=== PATIENT | female | born 1975 | race Caucasian/White ===

== ENCOUNTER 2023-09-09 19:52 | Outpatient (REF) | payer OTHER, SELFPAY ==
[2023-09-13 19:07] LABS: Age Gdln ACOG Testing Note (.); HPV Aptima Negative (Negative); IGP, Aptima HPV, rfx 16/18,45 Note (.)
== END 2023-09-09 19:53 | disposition home or self-care (01) ==
LOC: LAB 19:52
PROVIDERS: Visit Provider Obstetrics & Gynecology
DX: Z12.4 Encounter for screening for malignant neoplasm of cervix (principal)
CPT/HCPCS: 87624; G0145

== ENCOUNTER 2024-09-15 19:11 | Outpatient (REF) | payer OTHER, SELFPAY ==
--- OUTSIDE RECORDS SUMMARY | 2024-09-15 19:15 | XMS_ITS | CCD ---
Author Organization [facility] Care Team Providers Care Firm Administrator Name Role Phone KRYSTINA CRABTREE Admitting Unavailable BRO, KRYSTINA Attending Unavailable REQUEST, NONE LISTED Primary Care Unavaila ble BRO, KRYSTINA Consulting Unavailable HUMERA, WENDI Admitting Unavailable HUMERA, WENDI Attending Unavailable REQUEST, NONE LISTED Primary Care Unavaila nirav PETTY, DR QUIQUE Armendariz Consulting Unavailable HUMERA, WENDI Consulting Unavailable HUMERA, WENDI Admitting Unavailable HUMERA, WENDI Attending Unavailable REQUEST, NONE LISTED Primary Care Unavaila nirav GRUBBS, WENDI Consulting Unavailable BRO, KRYSTINA Admitting Unavailable BRO, KRYSTINA Attending Unavailable REQUEST, NONE LISTED Primary Care Unavaila ble BRO, KRYSTINA Consulting Unavailable RICKY BAH Attending Unavailable DO Adrien Granados Primary Care Provider [phone] Ricky Bah Attending Provider [phone] RICKY BAH Attending Unavailable RICKY BAH Attending Unavailable DO Adrien Granados Primary Care Provider [phone] LyDO Sarah Attending Provider [phone] DO Ricky Bah Referring Provider [phone] Sarah García Attending Unavailable Ricky Bah Referring Unavailable Adrien Granados Primary Care Unavailable Sarah García Admitting Unavailable Ricky Bah Admitting Unavailable Ricky Bah Attending Unavailable Adrien Granados Primary Care Unavailable Medications Current Medications Medication Drug Class(es) Dates Sig (Normalized) Sig (Original) 168 hr estradiol 0.76858 mg/hr transdermal system (1 source) Estrogen Start: 06-25-2024 apply 1 dose topically every week Estradiol Active 1 PATCH TOPICAL every week June 25, 2024 12:00am Thyroid (Pork) (Wise Thyroid) 60 mg tablet (1 source) Start: 06-25-2024 take 1 tablet by mouth once daily Thyroid (Pork) (Wise Thyroid) 60 mg tablet Active 60 MG PO Daily June 25, 2024 12:00am Problems Active Problems Problem Classification Problem Date Documented Da te Episodic/Chronic Other screening for suspected conditions (not mental disorders or infectious disease) (9 sources) Encounter for screening for malignant neoplasm of cervix; Translations: [Encounter for screening mammogram for malignant neoplasm of breast] Onset: 2021 Episodic Unclassified (2 sources) CONTACT W/AND (SUSP) EXPOS COVID-19; Translations: [CONTACT W/AND (SUSP) EXPOS COVID-19] Onset: 02-11-2022 Unclassified (1 source) Encounter for screening mammogram for malignant neoplasm of breast; Translations: [Encounter for screening mammogram for malignant neoplasm of breast] Onset: 10-10-2023 Viral infection (1 source) COVID-19; Translations: [COVID-19] Onset: 02-11-2022 Past or Other Problems Problem Classification Problem Date Documented Da te Episodic/Chronic Residual codes; unclassified (1 source) Family history of malignant neoplasm of breast; Translations: [FAMILY HX MALIG NEOPLASM OF BREAST] Onset: 09-06-2021 Episodic Residual codes; unclassified (1 source) Family history of malignant neoplasm of other organs or systems; Translations: [FAM HX MALIG NEOPLASM OTH ORGN/SYS] Onset: 09-06-2021 Episodic Unclassified (1 source) CONTACT W/AND (SUSP) EXPOS COVID-19; Translations: [CONTACT W/AND (SUSP) EXPOS COVID-19] Onset: 02-08-2022 Results Test Name Value Interpretation Reference Range Facility MM screening mammo BI w/CADo n 10-10-2023 MM screening mammo BI w/CAD [facility] [place] [address] Mammography Report Signed Patient: Aura Tirado MR#: [id number] : 1975 Acct:[id number] Age/Sex: 48 / F ADM Date: 10/10/23 Loc: OR Room: Type: [facility] Attending Dr: Ricky Bah Copies to: DO Ricky Velasco DO Ordering Provider: Ricky Bah DO Date of Service: 10/10/23 MM/MM screening mammo BI w/CAD: SCREENING CLINICAL DATA: Screening for malignancy. BILATERAL SCREENING MAMMOGRAMS - FULL FIELD DIGITAL WITH TOMOSYNTHESIS AND CAD Routine and tomosynthesis craniocaudal and mediolateral oblique views of both breasts were obtained using low-dose digital technique. Comparison is made to prior studies from August 20, 2019 through 2021. This examination was reviewed with the aid of CAD. There are scattered fibroglandular densities. There is similar nodularity. There are no developing masses, typically malignant calcifications or architectural distortion. There has been no significant interval change. MM/MM screening mammo BI w/CAD IMPRESSION: NO MAMMOGRAPHIC EVIDENCE OF MALIGNANCY. ROUTINE FOLLOW-UP IS RECOMMENDED IN ONE YEAR. RESULT CODE: 2 Benign Findings(s) DENSITY CODE: 2 (approximately 25-50% glandular) FOLLOW UP: 1YR The false-negative rate of mammography is approximately 10-percent. Management of a palpable abnormality must be based on clinical grounds. Patient was entered into a reminder system with a target due date for the next mammogram. Impression dictated by: Margot Cruz M.D.10/10/2023 3:03 PM Dictation Location: [facility] Transcribed By: [facility] 10/10/23 1503 Dictated By: Margot Cruz MD 10/10/23 1432 Signed By: 10/10/23 1503 Normal [facility] ASYMPTOMATIC COVID-19 ANTIGE Non 02-08-2022 EUA Statement SEE BELOW Normal [facility] Comment on above: Result Comment: This test has not been FDA cleared or approved, but has been authorized by the FDA under an Emergency Use Authorization (EUA) for use by authorized laboratories certified under CLIA that meet the requirements to perform moderate or high complexity testing. This test has been authorized only for the detection of proteins from SARS-CoV-2, not for any other viruses or pathogens. The emergency use of this test is authorized for the duration of the declaration that circumstances exist justifying the authorization of emergency use of in vitro diagnostic tests for detection and/or diagnosis of Covid-19 under section 564(b)(1) of the Act, 21 U.S.C. 360bbb-3(b)(1), unless the declaration is terminated or authorization is revoked sooner. Performed By: #### C VDAGA #### Laboratory [address] [place] [address] Dr. aKte Storm SARS-CoV-2 (COVID-19) RNA PATRICIA+probe Ql (Unsp spec) Positive Critically abnormal NEGATIVE The Comment on above: Result Comment: SARS -CoV-2 antigen present; does not rule out coinfection with other pathogens. Performed By: #### C VDAGA #### Laboratory [address] [place] [address] Dr. Kate Storm Covid-19 PCR ([facility])on SARS-CoV-2 (COVID-19) RNA PATRICIA+probe Ql (Unsp spec) Detected Critically abnormal NOT DETECTED The Comment on above: Result Comment: This test is not yet approved or cleared by the [place] FDA. When there are no FDA-approved or cleared tests available, and other criteria are met, FDA can make tests available under an emergency access mechanism called an Emergency Use Authorization (EUA). The EUA for this test is supported by the Litigation Partner of Health and Human Service's declaration that circumstances exist to justify the emergency use of in vitro diagnostics for the detection and/or diagnosis of the virus that causes COVID-19. This EUA will remain in effect for the duration of the COVID-19 declaration justifying emergency of IVDs, unless it is terminated or revoked by the FDA (after which the test may no longer be used). Performed By: #### C VDTBH #### Laboratory [address] [place] [address] Dr. Kate Storm Pap IG, rfx Aptima HPV, rfx 16/18,45on 09-26-2021 . . Normal The Comment on above: Result Comment: Perf ormed at: WB Performed By: #### P APHR2A #### Laboratory [address] [place] [address] Dr. Kate Storm DIAGNOSIS: Comment Normal [facility] Comment on above: Result Comment: NEGA TIVE FOR INTRAEPITHELIAL LESION OR MALIGNANCY. Performed at: [facility] Performed By: #### P APHR2A #### Laboratory [address] [place] [address] Dr. Kate Storm HPV Aptima Negative Normal Negative [facility] Comment on above: Result Comment: This nucleic acid amplification test detects fourteen high-risk HPV types (16,18,31,33,35,39,45,51,52,56,58,59,66,68) without differentiation. Performed at: =G Performed By: #### P APHR2A #### Laboratory [address] [place] [address] Dr. Kate Storm Methodology: Comment Normal [facility] Comment on above: Result Comment: This liquid based ThinPrep(R) pap test was screened with the use of an image guided system. Performed at: WB Performed By: #### P APHR2A #### Laboratory [address] [place] [address] Dr. Kate Storm Note: Comment Normal [facility] Comment on above: Result Comment: The Pap smear is a screening test designed to aid in the detection of premalignant and malignant conditions of the uterine cervix. It is not a diagnostic procedure and should not be used as the sole means of detecting cervical cancer. Both false-positive and false-negative reports do occur. . Performed at: WB Performed By: #### P APHR2A #### Laboratory [address] [place] [address] Dr. Kate Storm Performed by: Comment Normal [facility] Comment on above: Result Comment: Laury Barrios Mold Machine Operator (ASCP) Performed at: WB Performed By: #### P APHR2A #### Laboratory [address] [place] [address] Dr. Kate tSorm Specimen adequacy: Comment Normal [facility] Comment on above: Result Comment: Sati sfactory for evaluation. Performed at: WB Performed By: #### P APHR2A #### Laboratory [address] [place] [address] Dr. Kate Storm MG MAMM SCREEN 3D DIMPLE CADon 2021 MG MAMM SCREEN 3D DIMPLE CAD Patient: AURA TIRADOErica Exam Date: 2021 : 1975 Gender:F Ordering : DR. WENDI GRUBBS . Admission #: [id number] Family : Order #: [id number] CLICK HERE TO VIEW EXAM RADIOLOGY REPORT PROCEDURE: MAMMOGRAM SCREENING 3D BILATERAL CAD COMPARISON: MG MAMM RT DIAG FU, 09/01/2020. MG MAMM SCREEN DIMPLE W CAD, 08/25/2020. INDICATIONS: Screening mammography Calculator Name NCI Breast Cancer Risk Assessment Tool 5 Year Breast Cancer Risk 0.80% Lifetime Breast Cancer Risk 8.40% Personal Breast Cancer No Personal Ovarian Cancer No Treatments None Family Cancers Grandmother-paternal with breast cancer at age 52; Father with prostate cancer at age 68. LOCATION: The BREAST COMPOSITION: Extremely dense, which lowers the sensitivity of mammography. FINDINGS: DIAGNOSTIC CATEGORY 2--BENIGN FINDING: RIGHT BREAST: No significant suspicious finding. Stable, chronic asymmetry within the lower-inner quadrant. Stable appearance of multiple small axillary lymph nodes. No significant change has occurred. LEFT BREAST: No significant suspicious finding. Stable appearance of multiple small axillary lymph nodes. No significant change has occurred. RECOMMENDATIONS: ROUTINE MAMMOGRAM AND CLINICAL EVALUATION IN 12 MONTHS. PLEASE NOTE: A NORMAL MAMMOGRAM DOES NOT EXCLUDE THE POSSIBILITY OF BREAST CANCER. A CLINICALLY SUSPICIOUS PALPABLE LUMP SHOULD BE BIOPSIED. Dictated by: Quique Petty M.D. on 08/28/2021 at 11:38 Approved by: Quique Petty M.D. on 08/28/2021 at 11:47 Normal The Vital Signs Date Time Vital Sign Value Performing Clinician Dallas winkler 07-08-2024 09:15-0400 Diastolic blood pressure 86 mm[Hg] DO Adrien Ball Work Phone: [facility] 07-08-2024 09:15-0400 Heart rate 61 /min DO Adrien [employer] Work Phone: [facility] 07-08-2024 09:15-0400 Respiratory rate 16 /min DO Adrien Ball Work Phone: [facility] 07-08-2024 09:15-0400 SaO2% (BldA) [Mass fraction] 98 % DO Adrien Ball Work Phone: [facility] 07-08-2024 09:15-0400 Systolic blood pressure 136 mm[Hg] DO Adrien Ball Work Phone: [facility] 07-08-2024 07:20-0400 Body height 162.56 cm DO Adrien Ball Work Phone: [facility] 07-08-2024 07:20-0400 Body weight 70.3 kg DO Adrien Ball Work Phone: [facility] Encounters Encounter Date Encounter Type Care Provider Facility Start: 07-08-2024 Non-patient / Non-visit DO Adrien Ball Work Phone: [facility] Gastroenterology Work Phone: Start: 07-08-2024 End: 07-08-2024 Admission to same day surgery center DO Adrien Ball Work Phone: [facility] Work Phone: Start: 07-08-2024 End: 07-08-2024 ambulatory DO Adrien Ball Work Phone: [facility] Work Phone: Start: 04-13-2024 End: 04-13-2024 ambulatory RICKY GEETHA Not Available Start: 10-10-2023 End: 10-10-2023 Patient encounter procedure DO Adrien Ball Work Phone: [facility] Work Phone: Start: 10-10-2023 End: 10-10-2023 ambulatory DO Adrien Ball Work Phone: [facility] Work Phone: Start: 09-09-2023 End: 09-09-2023 ambulatory RICKY GEETHA Not Available Start: 09-09-2023 End: 09-09-2023 ambulatory RICKY GEETHA Not Available Start: 02-08-2022 End: 02-08-2022 ambulatory KRYSTINA BRO Facility:[facility] Start: 02-04-2022 End: 02-04-2022 ambulatory KRYSTINA BRO Facility:[facility] Start: 09-20-2021 End: 09-20-2021 ambulatory WENDI GRUBBS Facility:[facility] Start: 2021 End: 08-28-2021 ambulatory WENDI GRUBBS Facility:[facility] Procedures Date Procedure Procedure Detail Performing Clinician Start: 07-08-2024 Screening colonoscopy D O Adrien Granados Work Phone: Start: 10-10-2023 Screening mammograph y of bilateral breasts DO Adrien Granados Work Phone: Plan of Treatment Date Care Activity Detail Author Start: 07-08-2024 [facility] Patient Education Hemorrhoids (D C) Diverticulosis (DC) Know your Meds [facility] Work Phone: Immunizations Immunization Date Immunization Notes Care Provider Lisseth saldaañ 06-16-2021 COVID-19 mRNA, Comirnaty (Pfizer) DO Adrien Granados Work Phone: [facility] Payers Date Payer Category Payer Self-pay 2022 Private Health Insurance [id number] 2022 Private Health Insurance [id number] 2019 Unknown [id number] 1975 Unknown [id number] 2.16.84 [id number] 1975 Unknown [id number] 2.16.84 [id number] 1975 Unknown [id number] 2.16.84 [id number] 1975 Unknown [id number] 2.16.84 [id number] 1975 Unknown [id number] [id number] 1975 Unknown [id number] 2.16.84 [id number] Unknown [facility] [place] [place] [id number] Unknown [id number] 2.16.8 [id number] Unknown [id number] 2.16.8 [id number] Social History Date Type Detail [facility] Work Phone: Start: 1975 Sex Assigned At Female F [facility] Start: 07-08-2024 [facility] Goals Date Patient Goal Desired Activity /State Procedure note 07-08-2024 Note Date & Type Note Facility 07-08-2024 Procedure note [facility] Evaluation note Note Date & Type Note Facility Evaluation note No assessment information availa ble [facility] Work Phone: History and physical note Note Date & Type Note Facility History and physical note Note Date/Time July 08, 2024 8: 22am [facility] [address] [place] [address] Gastroenterology H&P Signed Patient: Aura Tirado MR#: [id number] : 1975 Acct:[id number] Age/Sex: 48 / F Adm Date: 4 Loc: Room: Type: [facility] Attending Dr: Sarah García DO Copies to: DO Sarah Velasco, DO~ Date of Service: 07/08/2024 HISTORY & PHYSICAL: Patient's history with special attention to the cardiovascular, pulmonary systems and the current problem was reviewed with the patient immediately prior to the procedure. Present medications and doses reviewed in the EMR. Allergies and pertinent laboratory tests were also reviewedat this time in the EMR. The physical examination, as below, was then performed. Indication, assessment and HPI: 28-year-old female who presents for screening colonoscopy. No prior colonoscopy. No GI complaints. Family history of GI malignancy? No PHYSICAL EXAMINATION General appearance: cooperative, NAD Skin: No jaundice, no rash or lesions Head: NCAT Eyes: Anicteric Neck: Supple Lungs: Normal respiratory effort, no use of accessory muscles Abdomen: Soft, nondistended Neuro: No focal deficits, Ox3. REVIEW OF SYSTEMS Constitutional: Denies malaise, fevers Cardiovascular: Denies chest pain, palpitations Respiratory: Denies shortness of breath, wheezing Gastrointestinal: As per HPI Genitourinary: Denies dysuria, polyuria Musculoskeletal: Denies joint swelling, joint stiffness Neurological: Denies confusion, numbness, tingling Endocrine: Denies fatigue Written informed consent obtained from the patient. Risks (including but not limited to perforation, infection, bloating, bleeding, need for emergent surgeryand loss of life), benefits and alternatives explained and questions answered. The patient verbalized understanding. Based on history patient is an appropriate candidate for the procedure. Sarah García DO Present medication and doses reviewed in the EMR Documented By: Sarah García DO 07/08/24820 Signed By: <Electronically signed by Sarah García DO> 07/08/24821 [facility] Work Phone: Summary Purpose Family History No Family History Records Found Relationship Condition Age at Onset Recorded Date/T mil father Diabetes mellitus Unknown Hypertension Unknown Fischer's esophagus Unknown Malignant neoplasm of skin Unknown Glaucoma Unknown mother Hypercholesterolemia Unknown Advance Directives No Advanced Directives Records Found Advance Directive Response Recorded Date/ Time Advance Directives No September 9:19am Advance Directive Response Recorded Date/ Time Advance Directives No September 10:19am Chief Complaint and Reason for Visit Chief Complaint Screening Chief Complaint Screening Screening Additional Source Comments INFORMATION SOURCE (unrecogn ized section and content) DATE CREATED AUTHOR 02/11/2022 [facility] DATE CREATED AUTHOR AUTHOR'S ORGANIZ ATION 09/11/2023 [facility] EPIC DATE CREATED AUTHOR AUTHOR'S ORGANIZ ATION 06/19/2024 [facility] EPIC DATE CREATED AUTHOR AUTHOR'S ORGANIZ ATION 07/21/2024 [facility] Care Teams (unrecognized sec tion and content) Team Status: Active Member Role Status Dates Adrien Granados DO Primary Care Provider Active Team Status: Inactive Member Role Status Dates Adrien Granados DO Primary Care Provider Active Ricky Bah Attending Provider Active Team Status: Inactive Member Role Status Dates Adrien Granados DO Primary Care Provider Active Start: July 08, 2024 End: July 08, 2024 Sarah García DO Attending Provider Active St art: July 08, 2024 End: July 08, 2024 Ricky Bah DO Referring Provider Active Start : July 08, 2024 End: July 08, 2024 Team Status: Active Member Role Status Dates Adrien Granados DO Primary Care Provider Active Start: July 08, 2024 Sarah García DO Attending Provider, Other Provider Active Start: July 08, 2024 Ricky Bah DO Referring Provider Active Start : July 08, 2024 Goals (unrecognized section and content) Goals may be documented in a n alternate section FOR RECORDS PERTAINING TO PATIENTS WHO ARE OR HAVE BEEN ENROLLED IN A CHEMICAL DEPENDENCY/SUBSTANCEABUSE PROGRAM, SOME INFORMATION MAY BE OMITTED. This clinical summary was aggregated from multiple sources. Caution should be exercised in using it in the provision of clinical care. This summary normalizes information from multiple sources, and as a consequence, information in this document may materially change the coding, format and clinical context of patient data. In addition, data may be omitted in some cases. CLINICAL DECISIONS SHOULD BE BASED ON THE PRIMARY CLINICAL RECORDS. [employer] provides no warranty or guarantee of the accuracy or completeness of information in this document.
== END 2024-09-15 19:12 | disposition home or self-care (01) ==
LOC: LAB 19:11
PROVIDERS: Visit Provider Obstetrics & Gynecology
DX: Z01.419 Encounter for gynecological examination (general) (routine) without abnormal findings (principal); Z90.710 Acquired absence of both cervix and uterus
CPT/HCPCS: 87624; 88175